=== PATIENT | female | born 1985 | race Two or more races ===

== ENCOUNTER 2018-02-12 11:21 | Emergency (ER) | payer MEDICAID ==
[~2018-02-12] VITALS: Ht 160 cm; Wt 117.9 kg
[2018-02-12 11:46] VITALS: BP 116/64
[2018-02-12 12:07] LABS: Basophils # (auto) 0 uL; Basophils % (auto) 0.6 % (0.0-2.0); Eosinophils # (auto) 0.1 uL; Eosinophils % (auto) 1.5 % (0.0-7.0); Hematocrit 41.4 % (36.0-46.0); Hemoglobin 14.1 g/dL (12.2-16.2); Lymphocytes # (auto) 2.2 uL; Lymphocytes % (auto) 33.6 % (10.0-50.0); Mean Corpuscular Hemoglobin 31.2 pg (28.0-32.0); Mean Corpuscular Hgb Conc. 34.1 g/dL (32.0-36.0); Mean Corpuscular Volume 91.4 fL (80.0-100.0); Monocytes # (auto) 0.4 uL; Monocytes % (auto) 5.4 % (0.0-12.0); Neutrophils # (auto) 3.9 uL; Neutrophils % (auto) 58.9 % (37.0-80.0); Nucleated Red Blood Cells % 0.1 %; Platelet Count (auto) 205 10^3/uL (140-450); Red Blood Cells 4.53 10^6/uL (4.0-5.20); Red Cell Distribution Width 13.3 % (11.8-14.3); White Blood Cell 6.6 10^3/uL (4.4-10.8)
== END 2018-02-12 18:05 | disposition home or self-care (01) ==
LOC: ER 11:21
DX: N93.9 Abnormal uterine and vaginal bleeding, unspecified (principal)
CPT/HCPCS: 36415; 84702; 85025

== ENCOUNTER 2021-01-08 18:00 | Emergency (ER) | payer MEDICAID ==
[~2021-01-08] VITALS: Ht 160 cm; Wt 114.3 kg
[2021-01-08 18:58] VITALS: BP 128/84
[2021-01-08] MEDS ORDERED: ACETAMINOPHEN 325 MG TAB PO ONE (21:30)
== END 2021-01-08 22:45 | disposition home or self-care (01) ==
LOC: ER 18:01
DX: S93.491A Sprain of other ligament of right ankle, initial encounter (principal); W54.1XXA Struck by dog, initial encounter; Y93.89 Activity, other specified; Y92.89 Other specified places as the place of occurrence of the external cause; Y99.8 Other external cause status
CPT/HCPCS: 73610

== ENCOUNTER 2021-03-27 15:54 | Emergency (ER) | payer MEDICAID ==
[~2021-03-27] VITALS: Ht 160 cm; Wt 112.9 kg
[2021-03-27 16:18] LABS: Urine Bacteria FEW /hpf (None Seen); Urine Blood Negative /uL (Negative); Urine Mucus FEW (None Seen); Urine WBC 14 /hpf (0 - 5)
[2021-03-27 19:42] VITALS: BP 108/78
== END 2021-03-27 20:03 | disposition home or self-care (01) ==
LOC: ER 15:55
DX: N88.8 Other specified noninflammatory disorders of cervix uteri (principal)
CPT/HCPCS: 76830; 76856; 81001

== ENCOUNTER 2022-10-15 14:01 | Emergency (ER) | payer MEDICAID ==
[~2022-10-15] VITALS: Ht 160 cm; Wt 115.5 kg
[2022-10-15 15:05] VITALS: BP 114/84
== END 2022-10-15 17:10 | disposition left against medical advice (07) ==
LOC: ER 14:08
DX: R05.9 Cough, unspecified (principal); Z53.21 Procedure and treatment not carried out due to patient leaving prior to being seen by health care provider

== ENCOUNTER 2024-03-14 17:12 | Inpatient (IN) | payer MEDICAID ==
[~2024-03-14] VITALS: Ht 160 cm; Wt 118.7 kg
[2024-03-14 18:16] LABS: Basophils # (auto) 0 10 ^3/uL (0-0.2); Basophils % (auto) 0.3 % (0.0-2.0); Eosinophils # (auto) 0.2 10 ^3/uL (0-0.8); Eosinophils % (auto) 1.7 % (0.0-7.0); Hematocrit 41.8 % (36.0-46.0); Hemoglobin 14.2 g/dL (12.2-16.2); Lymphocytes # (auto) 2.6 10 ^3/uL (0.4-5.4); Lymphocytes % (auto) 23.5 % (10.0-50.0); Mean Corpuscular Hemoglobin 31.5 pg (28.0-32.0); Mean Corpuscular Hgb Conc. 33.9 g/dL (32.0-36.0); Mean Corpuscular Volume 92.9 fL (80.0-100.0); Monocytes # (auto) 0.6 10 ^3/uL (0-1.3); Monocytes % (auto) 5.4 % (0.0-12.0); Neutrophils # (auto) 7.6 10 ^3/uL (1.6-8.6); Neutrophils % (auto) 69.1 % (37.0-80.0); Nucleated Red Blood Cells % 0.1 %; Red Cell Distribution Width 12.9 % (11.8-14.3)
[2024-03-14 18:22] LABS: Alanine Aminotransferase 24 U/L (7-40); Alkaline Phosphatase 115 U/L (46-116); Anion Gap 7 (5-15); Aspartate Aminotransferase 29 U/L (13-40); BUN/Creatinine Ratio 16.7 (10.0-20.0); Bilirubin, Total 0.5 mg/dL (0.2-1.0); Blood Urea Nitrogen 13 mg/dL (9-23); Calcium 9.3 mg/dL (8.5-10.1); Carbon Dioxide 23 mmol/L (20-30); Chloride 108 mmol/L (98-107); Glucose 104 mg/dL (74-106); Potassium 3.6 mmol/L (3.5-5.1); Sodium 138 mmol/L (136-145); Total Protein 7.1 g/dL (5.7-8.2)
[2024-03-14] MEDS ORDERED: DEXTROSE (50%) 50ML SYRG IV PRN (20:30)
[2024-03-14] MEDS ORDERED: MORPHINE SULFATE INJ 2 MG/ml SYRG IV PRN ×2 (20:30)
[2024-03-14] MEDS ORDERED: ONDANSETRON HCL 4 MG/2 ML VIAL IV PRN (20:30)
[2024-03-14] MEDS ORDERED: NITROGLYCERIN 0.4 MG SL TAB SL PRN (20:30)
[2024-03-15 05:00] VITALS: PULSE 97; RESP 18; O2SAT 97
[2024-03-15 05:00] LABS: Urine Amorphous Crystal FEW /hpf (None Seen); Urine Bacteria FEW /hpf (None Seen); Urine Blood Negative /uL (Negative); Urine Clarity Turbid (Clear); Urine Color Yellow (Yellow); Urine Mucus FEW (None Seen); Urine Protein, UAD TRACE (Negative); Urine Specific Gravity 1.019 (1.001-1.035); Urine Urobilinogen Normal (Negative); Urine WBC 66 /hpf (0 - 5); Urine pH 5.5 (5.0-9.0)
[2024-03-15] MEDS: SODIUM CHLORIDE 0.9% 1,000 ML IV SCH (05:26)
[2024-03-15] MEDS: ACCU-CHEK COMFORT CURVE STRIP VI SCH (05:26)
[2024-03-15] MEDS: SODIUM CHLORIDE 0.9% 1,000 ML IV ONE (05:27)
[2024-03-15] MEDS: CIPROFLOXACIN 400MG/200ML 200 ML IV ONE (05:27)
[2024-03-15] MEDS: MORPHINE SULFATE 4 MG/ML SYR/VIAL IV ONE (05:27)
[2024-03-15] MEDS: ONDANSETRON HCL 4 MG/2 ML VIAL IV ONE (05:28)
[2024-03-15 05:38] LABS: Basophils # (auto) 0 10 ^3/uL (0-0.2); Basophils % (auto) 0.4 % (0.0-2.0); Eosinophils # (auto) 0.2 10 ^3/uL (0-0.8); Eosinophils % (auto) 1.8 % (0.0-7.0); Hematocrit 41.2 % (36.0-46.0); Hemoglobin 14.2 g/dL (12.2-16.2); Lymphocytes # (auto) 2.6 10 ^3/uL (0.4-5.4); Lymphocytes % (auto) 28.8 % (10.0-50.0); Mean Corpuscular Hemoglobin 32.2 pg (28.0-32.0); Mean Corpuscular Hgb Conc. 34.4 g/dL (32.0-36.0); Mean Corpuscular Volume 93.4 fL (80.0-100.0); Monocytes # (auto) 0.5 10 ^3/uL (0-1.3); Monocytes % (auto) 5.6 % (0.0-12.0); Neutrophils # (auto) 5.6 10 ^3/uL (1.6-8.6); Neutrophils % (auto) 63.4 % (37.0-80.0); Nucleated Red Blood Cells % 0.1 %; Red Blood Cells 4.41 10^6/uL (4.0-5.20); Red Cell Distribution Width 12.7 % (11.8-14.3); White Blood Cell 8.9 10^3/uL (4.4-10.8)
[2024-03-15 05:46] LABS: Alanine Aminotransferase 28 U/L (7-40); Albumin 4.1 g/dL (3.2-4.8); Alkaline Phosphatase 115 U/L (46-116); Anion Gap 7 (5-15); Aspartate Aminotransferase 20 U/L (13-40); BUN/Creatinine Ratio 14.5 (10.0-20.0); Bilirubin, Total 1.1 mg/dL (0.2-1.0); Blood Urea Nitrogen 11 mg/dL (9-23); Calcium 9.2 mg/dL (8.7-10.4); Carbon Dioxide 24 mmol/L (20-30); Chloride 107 mmol/L (98-107); Glucose 112 mg/dL (74-106); Potassium 3.7 mmol/L (3.5-5.1); Sodium 138 mmol/L (136-145); Total Protein 7.4 g/dL (5.7-8.2)
[2024-03-15] MEDS: metroNIDAZOLE 500MG/100ML 100 ML IV ONE (07:52)
[2024-03-15 07:56] VITALS: PULSE 97; RESP 18; O2SAT 97
[2024-03-15] MEDS: PIPERACILLIN-TAZOB 3.375GM 100 ML IV SCH (09:55)
[2024-03-15] MEDS: PANTOPRAZOLE 40 MG/10 ML VIAL INJ IV SCH (09:57)
[2024-03-15 12:30] VITALS: BP 125/74; PULSE 70; PULSE 72; RESP 18; TEMP 97.9; O2SAT 100
[2024-03-15] MEDS: cefTRIAXone 1GM/50ML D5W 50 ML IV ONE (13:10)
[2024-03-15] MEDS: DOCUSATE SOD 100 MG CAP PO PRN (13:11)
[2024-03-15] MEDS: DICYCLOMINE HCL 10 MG CAP PO PRN (13:11)
[2024-03-15] MEDS: D5W/SOD CHLO 0.9% 1,000 ML IV SCH (13:24)
[2024-03-15] MEDS: metroNIDAZOLE 500MG/100ML 100 ML IV SCH (14:59)
[2024-03-15] MEDS ORDERED: PIPERACILLIN-TAZOB 3.375GM 100 ML IV SCH (16:00)
[2024-03-15 17:00] VITALS: BP 117/70; PULSE 80; RESP 20; TEMP 98; O2SAT 97
[2024-03-15 20:00] VITALS: PULSE 69; RESP 17; O2SAT 95
[2024-03-15 21:00] VITALS: BP 114/68; PULSE 69; RESP 17; TEMP 98.4; O2SAT 95
[2024-03-16] VITALS (8 sets, daily range): BP systolic 103–124; BP diastolic 61–78; PULSE 76–86; RESP 16–19; TEMP 97.9–98.9; O2SAT 95–99
[2024-03-16 05:53] LABS: Basophils # (auto) 0 10 ^3/uL (0-0.2); Basophils % (auto) 0.3 % (0.0-2.0); Eosinophils # (auto) 0.1 10 ^3/uL (0-0.8); Eosinophils % (auto) 2.1 % (0.0-7.0); Hematocrit 36.4 % (36.0-46.0); Hemoglobin 12.4 g/dL (12.2-16.2); Lymphocytes # (auto) 1.8 10 ^3/uL (0.4-5.4); Lymphocytes % (auto) 25.4 % (10.0-50.0); Mean Corpuscular Hemoglobin 31.8 pg (28.0-32.0); Mean Corpuscular Volume 93.3 fL (80.0-100.0); Monocytes # (auto) 0.5 10 ^3/uL (0-1.3); Monocytes % (auto) 7.4 % (0.0-12.0); Neutrophils # (auto) 4.5 10 ^3/uL (1.6-8.6); Neutrophils % (auto) 64.8 % (37.0-80.0); Nucleated Red Blood Cells % 0.1 %; Red Cell Distribution Width 12.8 % (11.8-14.3)
[2024-03-16] MEDS: cefTRIAXone 1GM/50ML D5W 50 ML IV SCH (09:03)
[2024-03-16] MEDS ORDERED: MORPHINE SULFATE 4 MG/ML SYR/VIAL IV PRN ×2 (20:45)
[2024-03-17 01:00] VITALS: BP 100/60; PULSE 82; RESP 16; TEMP 98.3; O2SAT 100
[2024-03-17 05:00] VITALS: BP 105/66; PULSE 85; RESP 17; TEMP 98.2; O2SAT 97
[2024-03-17 08:00] VITALS: O2SAT 97
[2024-03-17 08:50] VITALS: BP 114/64; PULSE 74; RESP 19; TEMP 98; O2SAT 97
[2024-03-17] MEDS ORDERED: LEVO500T91 PO (11:01)
[2024-03-17] MEDS ORDERED: METR-344 PO (11:01)
[2024-03-17] MEDS ORDERED: IBU600T PO (11:04)
[2024-03-17 12:36] VITALS: BP 111/70; PULSE 67; RESP 16; TEMP 98.5; O2SAT 98
== END 2024-03-17 17:30 | disposition home or self-care (01) | DRG 720 ==
LOC: ER 17:12 → OVERFLOW 20:34 → WEST WING 03-15 11:36
PROVIDERS: ADMIT Nurse Practitioner Family; ATTEND Family Medicine
DX: A41.9 Sepsis, unspecified organism (principal); E66.9 Obesity, unspecified; N39.0 Urinary tract infection, site not specified; K57.32 Diverticulitis of large intestine without perforation or abscess without bleeding; E86.0 Dehydration; Z68.42 Body mass index [BMI] 45.0-49.9, adult
CPT/HCPCS: 36415; 74176; 80053; 81001; 81025; 82962; 83690; 85025; 87040; 87086; C9113; G0378; J2543; J3490; J7042